=== PATIENT | female | born 1940 | race Two or more races ===

== ENCOUNTER 2017-06-12 09:49 | Outpatient (CLI) | payer OTHER ==
[~2017-06-12 09:49] MED LIST: NO SE ACUERDA
== END 2017-06-12 10:50 | disposition home or self-care (01) ==
LOC: MAMO-SONO 09:49
DX: Z12.31 Encounter for screening mammogram for malignant neoplasm of breast (principal); Z87.898 Personal history of other specified conditions; N63.10 Unspecified lump in the right breast, unspecified quadrant; N63.20 Unspecified lump in the left breast, unspecified quadrant

== ENCOUNTER 2020-08-29 18:49 | Emergency (ER) | payer OTHER ==
[~2020-08-29] VITALS: Ht 157.5 cm; Wt 61.7 kg
[2020-08-29] MEDS ORDERED: ENALAPRIL MALEA10 MG NGT (19:08)
[2020-08-29] MEDS ORDERED: INTESTINEX680 M1 PO (22:01)
[2020-08-29] MEDS ORDERED: MACROBID 100 M100 MG PO (22:01)
== END 2020-08-29 22:56 | disposition home or self-care (01) ==
LOC: ER 18:49
DX: R10.13 Epigastric pain (principal); N39.0 Urinary tract infection, site not specified

== ENCOUNTER 2020-10-03 07:03 | Emergency (ER) | payer OTHER ==
[~2020-10-03] VITALS: Ht 157.5 cm; Wt 55.3 kg
[~2020-10-03 07:03] MED LIST changes: +ENALAPRIL MALEA10 MG NGT; +INTESTINEX680 M1 PO; +MACROBID 100 M100 MG PO
[2020-10-06] MEDS ORDERED: FEROSUL325 MG (10:23)
[2020-10-06] MEDS ORDERED: FOLIC ACID0.8 M1 (10:23)
[2020-10-06] MEDS ORDERED: MEDI-MECLIZINE25 MG (10:24)
[2020-10-06] MEDS ORDERED: INTESTINEX680 M1 PO (14:30)
[2020-10-06] MEDS ORDERED: LEVOFLOXACIN750 MG PO (14:30)
== END 2020-10-03 11:06 | disposition home or self-care (01) ==
LOC: ER 07:03
DX: R42 Dizziness and giddiness (principal); D64.89 Other specified anemias

== ENCOUNTER → 2020-10-06 | Emergency (ER) | payer OTHER ==
[~2020-10-06] VITALS: Ht 157.5 cm; Wt 50.8 kg
[~2020-10-06] MED LIST changes: +BACTRIM DS TAB1 EACH PO; +FEROSUL325 MG; +FOLIC ACID0.8 M1; +LEVOFLOXACIN750 MG PO; +MEDI-MECLIZINE25 MG; +PEPCID AC20 MG PO; +PEPCID40 MG PO; +VASOTEC2.5 MG; +ZOFRAN4 MG PO
== END | disposition home or self-care (01) ==
LOC: ER 09:43
DX: N39.0 Urinary tract infection, site not specified (principal); D64.89 Other specified anemias; R53.1 Weakness

== ENCOUNTER 2020-11-08 22:18 | Emergency (ER) | payer OTHER ==
[~2020-11-08] VITALS: Ht 160 cm; Wt 68.0 kg
[~2020-11-08 22:18] MED LIST changes: -BACTRIM DS TAB1 EACH PO; -PEPCID AC20 MG PO; -PEPCID40 MG PO; -VASOTEC2.5 MG; -ZOFRAN4 MG PO
[2020-11-08] MEDS ORDERED: VASOTEC2.5 MG (22:26)
[2020-11-09] MEDS ORDERED: PEPCID40 MG PO (06:19)
[2020-11-09] MEDS ORDERED: ZOFRAN4 MG PO (06:19)
== END 2020-11-09 06:54 | disposition home or self-care (01) ==
LOC: ER 22:18
DX: K29.60 Other gastritis without bleeding (principal); R10.13 Epigastric pain

== ENCOUNTER 2020-11-11 03:25 | Emergency (ER) | payer OTHER ==
[~2020-11-11] VITALS: Ht 157.5 cm; Wt 63.5 kg
[~2020-11-11 03:25] MED LIST changes: +PEPCID40 MG PO; +VASOTEC2.5 MG; +ZOFRAN4 MG PO
== END 2020-11-11 14:40 | disposition home or self-care (01) ==
LOC: ER 03:25
DX: R10.13 Epigastric pain (principal)

== ENCOUNTER 2020-11-22 22:22 | Emergency (ER) | payer OTHER ==
[~2020-11-22] VITALS: Ht 152.4 cm; Wt 54.4 kg
[2020-11-23] MEDS ORDERED: BACTRIM DS TAB1 EACH PO (09:37)
[2020-11-23] MEDS ORDERED: PEPCID AC20 MG PO (09:37)
== END 2020-11-23 09:42 | disposition home or self-care (01) ==
LOC: ER 22:22
DX: K29.70 Gastritis, unspecified, without bleeding (principal); N39.0 Urinary tract infection, site not specified; R10.13 Epigastric pain

== ENCOUNTER 2022-07-02 09:49 | Outpatient (CLI) | payer OTHER ==
[~2022-07-02 09:49] MED LIST changes: +BACTRIM DS TAB1 EACH PO; +PEPCID AC20 MG PO
== END 2022-07-02 10:04 | disposition home or self-care (01) ==
LOC: MAMO-SONO 09:49
PROVIDERS: ATTEND Specialist
DX: D24.1 Benign neoplasm of right breast (principal)

== ENCOUNTER 2023-07-29 07:07 | Outpatient (CLI) | payer OTHER | END 2023-07-29 07:11 | disposition home or self-care (01) | LOC: MAMO-SONO 07:07 | PROVIDERS: ATTEND Internal Medicine | DX: N64.4 Mastodynia (principal); Z12.31 Encounter for screening mammogram for malignant neoplasm of breast ==

== ENCOUNTER 2023-08-12 13:07 | Outpatient (CLI) | payer OTHER | END 2023-08-12 13:11 | disposition home or self-care (01) | LOC: NUCLEAR 13:07 | PROVIDERS: ATTEND Student in an Organized Health Care Education/Training Program | DX: M81.0 Age-related osteoporosis without current pathological fracture (principal) ==

== ENCOUNTER 2024-01-28 16:29 | Emergency (ER) | payer OTHER ==
[~2024-01-28] VITALS: Ht 157.5 cm; Wt 50.8 kg
[2024-01-28] MEDS ORDERED: ARICEPT5 MG (17:16)
[2024-01-28] MEDS ORDERED: [UNRECOGNIZED DRUG - OTHER] PO (17:16)
[2024-01-28] MEDS ORDERED: BISOPROLOL FUMAR5 MG PO (17:16)
[2024-01-28] MEDS ORDERED: LOSARTAN-HCTZ1 EACH PO (17:17)
[2024-01-28] MEDS ORDERED: AMLODIPINE-OLM1 EAC2 (17:17)
== END 2024-01-28 18:50 | disposition home or self-care (01) ==
LOC: ER 16:29
DX: R53.81 Other malaise (principal); I95.1 Orthostatic hypotension; I10 Essential (primary) hypertension

== ENCOUNTER 2025-02-18 09:52 | Outpatient (CLI) | payer OTHER ==
[~2025-02-18 09:52] MED LIST changes: +AMLODIPINE-OLM1 EAC2; +ARICEPT5 MG; +BISOPROLOL FUMAR5 MG PO; +LOSARTAN-HCTZ1 EACH PO; +[UNRECOGNIZED DRUG - OTHER] PO
== END 2025-02-18 09:57 | disposition home or self-care (01) ==
LOC: MAMO-SONO 09:52
PROVIDERS: ATTEND Internal Medicine
DX: N64.9 Disorder of breast, unspecified (principal); Z12.31 Encounter for screening mammogram for malignant neoplasm of breast